=== PATIENT | male | born 1950 | race Caucasian/White ===

== ENCOUNTER 2023-04-15 08:59 | Inpatient (IN) | payer MEDICARE ==
[~2023-04-15] VITALS: Ht 177.8 cm; Wt 71.8 kg
[~2023-04-15 08:59] MED LIST: ACET325T53 PO; AMIO200T5 PO; AMOX-430 PO; APIX5TAB PO; BUDE10.2 IH; FOLI0.4T6 PO; HYDR-3980 PO; METO50TA16 PO; MONT10TA22 PO; NATE60TA4 PO; ROSU10TA2 PO; [UNRECOGNIZED DRUG - CODE] PO
[2023-04-15 10:00] VITALS: BP 131/65; TEMP 97.6; O2SAT 95
[2023-04-15] MEDS ORDERED: FENTANYL PF 100MCG/2ML AMPUL ONE (10:56)
[2023-04-15] MEDS ORDERED: LIDOCAINE 0.5% HCL 50 ML VIAL ONE (10:56)
[2023-04-15] MEDS ORDERED: Magnesium 1 GM/2 ML VIAL ONE (10:56)
[2023-04-15] MEDS ORDERED: ROCURONIUM BROMIDE 50 MG/5 ML ONE (10:56)
[2023-04-15] MEDS ORDERED: FAMOTIDINE/PF INJ 20 MG/2 ML VIAL IV ONE (10:56)
[2023-04-15] MEDS ORDERED: OXYMETAZOLINE HCL NASAL SPRAY 30 ML BOTTLE NS ONE (10:57)
[2023-04-15] MEDS ORDERED: dexaMETHasone SOD PHOSPHATE 10 MG/ML VIAL ONE (11:10)
[2023-04-15] MEDS ORDERED: LIDOCAINE 2%-EPI 1:200,000 20 ML VIAL IJ ONE (11:10)
[2023-04-15] MEDS ORDERED: VANCOMYCIN 1 GM VIAL ONE (11:10)
[2023-04-15] MEDS ORDERED: ANESTHESIA TRAY IN PYXIS 1 EA TRAY MC ONE (13:21)
[2023-04-15] MEDS ORDERED: AMOX1TAB16 PO (13:45)
[2023-04-15] MEDS ORDERED: TRAM50TA2 PO (13:45)
[2023-04-15] MEDS ORDERED: ALBU8.5H8 IH (13:45)
[2023-04-15] MEDS ORDERED: HYDROMORPHONE 1 MG/1 ML DISP.SYRIN IV PRN (15:00)
[2023-04-15] MEDS ORDERED: IV NS 0.9% 1,000 ML IV PRN (15:00)
[2023-04-15] MEDS ORDERED: ACETAMINOPHEN 325 MG TABLET PO PRN ×2 (15:00→18:30)
[2023-04-15] MEDS ORDERED: ONDANSETRON HCL/PF 4 MG/2 ML VIAL IVP PRN ×2 (15:00→18:30)
[2023-04-15 16:00] VITALS: BP 119/81; TEMP 97.7; O2SAT 94
[2023-04-15] MEDS ORDERED: Z GUARD REMEDY 4 OZ OINT TP PRN (18:30)
[2023-04-15] MEDS ORDERED: HYDROCODONE/APAP 5/325MG TABLET PO PRN (18:30)
[2023-04-15] MEDS ORDERED: MAGNESIUM HYDROXIDE 30 ML UDC PO PRN (18:30)
[2023-04-15] MEDS ORDERED: MAG HYDROX/AL HYDROX/SIMETH 30 ML UDC PO PRN (18:30)
[2023-04-15] MEDS ORDERED: TRAMADOL HCL 50 MG TABLET PO PRN (18:30)
[2023-04-15] MEDS ORDERED: ZOLPIDEM TARTRATE 5 MG TABLET PO PRN (18:30)
[2023-04-15] MEDS: ALBUTEROL FS 2.5 MG/0.5 ML VIAL.NEB NEB SCH (19:30)
[2023-04-15] MEDS: BUDESONIDE RESPULE INH 0.5 MG/2 ML AMPUL.NEB IH SCH (19:30)
[2023-04-15] MEDS ORDERED: ALBUTEROL FS 2.5 MG/0.5 ML VIAL.NEB NEB PRN (19:30)
[2023-04-15 19:59] LABS: CALCIUM, SERUM 8.7 mg/dL (8.5-10.1); CREATININE 0.9 mg/dL (0.6-1.3); POTASSIUM 4.7 mmol/L (3.5-5.1)
[2023-04-15 20:00] VITALS: BP 130/79; TEMP 98.1; O2SAT 95
[2023-04-15] MEDS ORDERED: INSULIN REGULAR, HUMAN 100 UNIT/ML 3 ML VIAL SQ PRN (20:00)
[2023-04-15] MEDS ORDERED: *INSULIN REGULAR(HUMULIN R)HUM 100 UNIT/ML VIAL SQ PRN (20:00)
[2023-04-15] MEDS ORDERED: DEXTROSE 50%-WATER 50 ML DISP.SYRIN IV PRN (20:00)
[2023-04-15] MEDS ORDERED: ATORVASTATIN 10 MG TABLET PO SCH (22:00)
[2023-04-15] MEDS ORDERED: MONTELUKAST SODIUM (10MG) 10 MG TABLET PO SCH (22:00)
[2023-04-15] MEDS: BLOOD SUGAR DIAGNOSTIC 1 EACH STRIP VI SCH (22:05)
[2023-04-15 23:00] VITALS: BP 123/70; TEMP 98
[2023-04-15] MEDS: VANCOMYCIN 1 GM in IV D5W 250ml IV SCH (23:03)
[2023-04-16] MEDS: ALBUTEROL FS 2.5 MG/0.5 ML VIAL.NEB NEB SCH ×3 (00:35→14:20)
[2023-04-16] MEDS: BLOOD SUGAR DIAGNOSTIC 1 EACH STRIP VI SCH ×2 (06:39→12:35)
[2023-04-16 07:00] VITALS: BP 139/78; TEMP 97.6; O2SAT 96
[2023-04-16 07:52] LABS: BASOPHILS % (AUTO) 0.1 % (0.0-2.0); HEMATOCRIT 38 % (39-51); HEMOGLOBIN 12.7 g/dL (13.5-17.5); LYMPHOCYTES # (AUTO) 0.9 K/uL (0.8-4.8); MEAN CORPUSCULAR HEMOGLOBIN 31 PG (26.0-33.0); MEAN CORPUSCULAR HGB CONC 33 g/dl (31.0-36.0); MEAN CORPUSCULAR VOLUME 92 fL (80-96); MONOCYTES # (AUTO) 0.6 K/uL (0.1-1.30); MONOCYTES % (AUTO) 7.1 % (2.0-12.0); NEUTROPHILS % (AUTO) 81.8 % (43.0-81.0); PLATELET COUNT (AUTO) 186 K/uL (150-450); RED BLOOD CELL COUNT(AUTO) 4.14 MIL/uL (4.5-6.0); RED CELL DISTRIBUTION WIDTH 13.8 % (11.5-15.0); WHITE BLOOD COUNT (AUTO) 8.5 K/uL (4.3-11.0)
[2023-04-16 08:01] LABS: CALCIUM, SERUM 9.1 mg/dL (8.5-10.1); CREATININE 0.6 mg/dL (0.6-1.3); MAGNESIUM 2.1 mg/dL (1.8-2.4); PHOSPHORUS 2.7 mg/dL (2.5-4.9); POTASSIUM 3.8 mmol/L (3.5-5.1)
[2023-04-16] MEDS: BUDESONIDE RESPULE INH 0.5 MG/2 ML AMPUL.NEB IH SCH (08:42)
[2023-04-16 08:43] VITALS: O2SAT 95
[2023-04-16 08:59] VITALS: O2SAT 97
[2023-04-16] MEDS ORDERED: NATEGLINIDE 60 MG TABLET PO SCH (09:00)
[2023-04-16] MEDS ORDERED: FOLIC ACID 1 MG TABLET PO SCH (09:00)
[2023-04-16] MEDS ORDERED: AMIODARONE HCL 200 MG TABLET PO SCH (09:00)
[2023-04-16] MEDS ORDERED: TERBUTALINE SULFATE 2.5 MG TABLET PO SCH (09:00)
[2023-04-16] MEDS ORDERED: APIXABAN 5 MG TABLET PO SCH (09:00)
[2023-04-16] MEDS ORDERED: METOPROLOL TARTRATE 50 MG TABLET PO SCH (09:00)
[2023-04-16 09:40] VITALS: BP 139/68
[2023-04-16] MEDS: VANCOMYCIN 1 GM in IV D5W 250ml IV SCH (12:36)
[2023-04-16 14:21] VITALS: O2SAT 95
[2023-04-16 14:33] VITALS: O2SAT 100
== END 2023-04-16 16:50 | disposition home or self-care (01) | DRG 497 ==
LOC: DS 08:59 → MED 09:18
PROVIDERS: ADMIT Student in an Organized Health Care Education/Training Program; ATTEND Student in an Organized Health Care Education/Training Program
PROC: 0NPW04Z Removal of Internal Fixation Device from Facial Bone, Open Approach (ICD-10-PCS; principal; 2023-04-15)
PROC: 0WB30ZX Excision of Oral Cavity and Throat, Open Approach, Diagnostic (ICD-10-PCS; 2023-04-15)
PROC: 0NBR0ZZ Excision of Maxilla, Open Approach (ICD-10-PCS; 2023-04-15)
PROC: 09BR0ZX Excision of Left Maxillary Sinus, Open Approach, Diagnostic (ICD-10-PCS; 2023-04-15)
PROC: 09BQ0ZX Excision of Right Maxillary Sinus, Open Approach, Diagnostic (ICD-10-PCS; 2023-04-15)
DX: T84.69XA Infection and inflammatory reaction due to internal fixation device of other site, initial encounter (principal); M27.40 Unspecified cyst of jaw; D64.9 Anemia, unspecified; E11.649 Type 2 diabetes mellitus with hypoglycemia without coma; I10 Essential (primary) hypertension; I48.91 Unspecified atrial fibrillation; J44.9 Chronic obstructive pulmonary disease, unspecified; J32.0 Chronic maxillary sinusitis; Y83.8 Other surgical procedures as the cause of abnormal reaction of the patient, or of later complication, without mention of misadventure at the time of the procedure; Y92.89 Other specified places as the place of occurrence of the external cause; K13.79 Other lesions of oral mucosa; F17.210 Nicotine dependence, cigarettes, uncomplicated
CPT/HCPCS: 36415; 80048-TC; 82962-TC; 83735-TC; 84100-TC; 85025-TC; 94799-TC; A4223; G0378; J1100; J1815; J2405; J2704; J3010; J3370; J3475; J3490; J7030; J7060